=== PATIENT | male | born 1960 | race Caucasian/White ===

== ENCOUNTER 2019-04-20 19:40 | Emergency (ER) | payer MEDICAID ==
[~2019-04-20] VITALS: Ht 172.7 cm; Wt 77.0 kg
[2019-04-20] MEDS ORDERED: SOD CHLORIDE 0.9% 1,000 ML IV STA ×2 (19:52→22:08)
[2019-04-20 19:53] VITALS: Ht 172.7 cm; Wt 77.0 kg
[2019-04-20] MEDS ORDERED: DIAZEPAM 5 MG/ML SYG IV ONE (20:00)
[2019-04-20] MEDS ORDERED: MAGNESIUM SULFATE 2 GM/50 ML 50 ML IVPB ONE (22:30)
--- NOTE | 2019-04-21 00:18 | ERD ---
ER Documentation Chief Complaint Chief Complaint left flank pain, bilat arm and leg cramping x 1 hr, hx kidney ds in past HPI This is a 58-year-old male who said that he started having some left flank pain earlier this afternoon followed by bilateral arm and leg cramping that is severe onset about 2 hours ago. Patient has some type of renal disease he states but is not sure what it is. He said that he is apparently urinating a lot of protein. He has no chest pain or shortness of breath. The patient says he does not drink any water and drinks nothing but sodas all day ROS All systems reviewed and are negative except as per history of present illness. Medications Home Meds Reported Medications [None] No Conflict Check 05/19/12 Allergies Allergies: Coded Allergies: No Known Allergy (Unverified , 07/19/13) PMhx/Soc History of Surgery: No (appendicitis) Anesthesia Reaction: No Hx Neurological Disorder: No Hx Respiratory Disorders: No Hx Cardiac Disorders: Yes (HTN) Hx Psychiatric Problems: No Hx Miscellaneous Medical Probl: No Hx Alcohol Use: No Hx Substance Use: No Hx Tobacco Use: No Smoking Status: Never smoker FmHx Family History: No coronary disease Physical Exam Vitals Vital Signs Date Temp Pulse Resp B/P (MAP) Pulse Ox O2 O2 Flow FiO2 Time Delivery Rate 04/20/19 56 16 120/73 100 Room Air 23:04 (89) 04/20/19 98.2 64 16 124/71 97 Room Air 21:11 (88) 04/20/19 67 16 155/80 97 Room Air 20:11 (105) 04/20/19 98.2 68 20 155/80 97 19:53 (105) Physical Exam Const: Well-developed, well-nourished, in obvious pain from Mely muscle cramps Head: Atraumatic, normocephalic Eyes: Normal Conjunctiva, PERRLA, EOMI, normal sclera, no nystagmus ENT: Normal External Ears, Nose and Mouth, moist mucus membranes. Neck: Full range of motion. No meningismus, no lymphadenopathy. Resp: Clear to auscultation bilaterally, no wheezing, rhonchi, rales Cardio: Regular rate and rhythm, no murmurs, S1 S2 present Abd: Soft, non tender x 4, non distended. Normal bowel sounds, no guarding or rebound, no pulsitile abdominal masses or bruits Skin: No petechiae or rashes, no ecchymosis , no maculopapular rash Back: No midline or flank tenderness Ext: No cyanosis, or edema, FROM x 4, normal inspection, n eurovascularly intact x 4, having muscle cramps and spasms in various extremities Neur: Awake and alert, STR 5/5 x 4, sensation intact x 4, no focal findings, cerebellum intact Psych: Normal Mood and Affect Result Diagram: 04/20/19194704/20/191947 Results 24 hrs Laboratory Tests Test 04/20/19 19:48 White Blood Count 16.9 10^3/ul Red Blood Count 4.57 10^6/ul Hemoglobin 13.4 g/dl Hematocrit 39.2 % Mean Corpuscular Volume 85.8 fl Mean Corpuscular Hemoglobin 29.3 pg Mean Corpuscular Hemoglobin Concent 34.2 g/dl Red Cell Distribution Width 13.8 % Platelet Count 387 10^3/UL Mean Platelet Volume 10.6 fl Immature Granulocytes % 0.500 % Neutrophils % 81.4 % Lymphocytes % 15.4 % Monocytes % 2.4 % Eosinophils % 0.0 % Basophils % 0.3 % Nucleated Red Blood Cells % 0.0 /100WBC Immature Granulocytes # 0.080 10^3/ul Neutrophils # 13.7 10^3/ul Lymphocytes # 2.6 10^3/ul Monocytes # 0.4 10^3/ul Eosinophils # 0.0 10^3/ul Basophils # 0.1 10^3/ul Nucleated Red Blood Cells # 0.0 10^3/ul Sodium Level 133 mmol/L Potassium Level 5.4 mmol/L Chloride Level 99 mmol/L Carbon Dioxide Level 23 mmol/L Anion Gap 11 Blood Urea Nitrogen 26 mg/dl Creatinine 1.53 mg/dl Est Glomerular Filtrat Rate mL/min 47 mL/min Glucose Level 325 mg/dl Calcium Level 9.5 mg/dl Magnesium Level 1.4 mg/dl Total Bilirubin 0.9 mg/dl Direct Bilirubin 0.00 mg/dl Indirect Bilirubin 0.9 mg/dl Aspartate Amino Transf (AST/SGOT) 25 IU/L Alanine Aminotransferase (ALT/SGPT) 24 IU/L Alkaline Phosphatase 89 IU/L Troponin I < 0.012 ng/ml B-Type Natriuretic Peptide 108 PG/ML Total Protein 6.9 g/dl Albumin 3.8 g/dl Globulin 3.10 g/dl Albumin/Globulin Ratio 1.22 Current Medications Medications Dose Sig/Seth Start Time Status Last (Trade) Ordered Route PRN Stop Time Admin Dose Reason Admin Sodium 1,000 ml @ Q1H STAT 04/20/19 DC 04/20/19 Chloride 1,000 mls/hr IV 19:52 04/20/19 20:02 20:51 Diazepam 10 mg ONCE ONCE 04/20/19 DC 04/20/19 (Valium) IV 20:00 04/20/19 19:59 20:01 Sodium 1,000 ml @ Q1H STAT 04/20/19 DC 04/20/19 Chloride 1,000 mls/hr IV 22:08 04/20/19 22:17 23:07 Magnesium 50 ml @ 25 ONCE ONCE 04/20/19 04/20/19 Sulfate mls/hr IVPB 22:30 04/21/19 22:17 00:29 Procedures/[place] [id number] Radiology Main Line: [phone] DIAGNOSTIC IMAGING REPORT Patient: ANA MARÍA JEFF : 1960 Age: 58 Sex: M MR #: [id number] DOS: 04/20/191951 Ordering MD: LA NENA GARCIA DO Location: E/R Room/Bed: PROCEDURE: XR Chest. CLINICAL INDICATION: Chest Pain. TECHNIQUE: Single frontal view of the chest COMPARISON: CR CHEST 04/05/2013 FINDINGS: No focal pulmonary consolidation. The heart and mediastinum are within normal limits. There is no pleural effusion or pneumothorax. Bones and soft tissues are unremarkable. IMPRESSION: No acute cardiac or pulmonary findings. RPTAT:HCLE Physician Viola Date Time Electronically viewed and signed by Physician Viola on 04/20/2019 21:14 cE/ CC: LA NENA GARCIA DO [id number] Patient has elevated white blood count of 16.9, there is also mild hyperkalemia at 5.4 with some prerenal azotemia and sugar of 325. Magnesium is low at 1.4. The patient received 2 L of normal saline, with Valium, and 2 g of IV magnesium. Reexamination at 0010, the patient is much better he is not cramping anymore and is sleeping comfortably. He says he feels better. I discussed with him to stop drinking so much soda and drink more water. His cramping is likely due to a combination of hypo-magnesium along with dehydration. His CT scan is not read yet but if it is negative and shows no acute pathology of discharge him home. I discussed with him home care Departure Diagnosis: Primary Impression: Dehydration Additional Impressions: Low magnesium level Muscle cramps Condition: Stable LA NENA GARCIA DO Apr 21, 2019 00:14
[2019-04-21 01:25] VITALS: BP 136/81; PULSE 54; RESP 18
[2019-04-21] MEDS ORDERED: CYCL25CA10 PO (01:51)
[2019-04-21] MEDS ORDERED: CYCL100C21 PO (01:51)
[2019-04-21] MEDS ORDERED: PRED5TAB PO (01:51)
[2019-04-21] MEDS ORDERED: SPIR25TA PO (01:55)
[2019-04-21] MEDS ORDERED: ATOR20TA38 PO (01:55)
[2019-04-21] MEDS ORDERED: ERGO500013 PO (01:55)
[2019-04-21] MEDS ORDERED: LOSA50TA14 PO (01:55)
== END 2019-04-21 01:39 | disposition home or self-care (01) ==
LOC: E/R 19:40
DX: E86.0 Dehydration (principal); E61.2 Magnesium deficiency; R25.2 Cramp and spasm; I10 Essential (primary) hypertension
CPT/HCPCS: 36415; 71045; 74176; 80053; 83735; 83880; 84484; 85025; 96374; 96375; J3360; J3475; J7030; Z7502; 93005